=== PATIENT | male | born 1945 | race African-American/Black ===

== ENCOUNTER 2016-12-13 11:40 | Emergency (ER) | payer OTHER ==
[~2016-12-13] VITALS: Ht 175.3 cm; Wt 89.3 kg
[~2016-12-13 11:40] MED LIST: ATENOLOL100 MG PO; CIPRO500 MG PO; LAC PO; MAC100 PO; MOTRIN800 MG PO; PANTOPRAZOLE SO40 M1 PO; PHENAZOPYRIDINE PO; PROTONIX40 MG PO
[2016-12-13 12:08] LABS: BASOPHIL % 0.4 % (0-2); PLATELET COUNT 142 x10^3mcL (130-400)
[2016-12-13 12:12] LABS: RED CELL DISTRIBUTION WIDTH 16.9 % (11.5-14.5)
[2016-12-13 12:21] LABS: CALCIUM 8.8 mg/dL (8.5-10.1); CARBON DIOXIDE 23.8 mmol/L (21-32); CREATININE SERUM 1.7 mg/dL (0.7-1.3); POTASSIUM SERUM 4.1 mmol/L (3.5-5.1)
[2016-12-13 12:26] LABS: BILIRUBIN TOTAL 1.4 mg/dL (0.20-1.00)
[2016-12-13 12:32] LABS: FREE T4 1.39 ng/dL (0.76-1.46)
[2016-12-13 12:34] LABS: T3 TOTAL 1.25 ng/mL; T4(THYROXINE) 13.8 ug/dL (4.7-13.3)
[2016-12-13 12:37] LABS: TOTAL PROTEIN, SERUM 9.3 g/dL (6.4-8.2)
[2016-12-13 13:13] VITALS: BP 117/83
== END 2016-12-13 13:13 | disposition home or self-care (01) ==
LOC: ED 11:40
PROVIDERS: Specialist
DX: R55 Syncope and collapse (principal); R42 Dizziness and giddiness; N28.9 Disorder of kidney and ureter, unspecified; K21.9 Gastro-esophageal reflux disease without esophagitis; N40.0 Benign prostatic hyperplasia without lower urinary tract symptoms
CPT/HCPCS: 83880; 84439; J7030; Q0092

== ENCOUNTER 2017-03-07 19:41 | Emergency (ER) | payer OTHER ==
[~2017-03-07] VITALS: Ht 175.3 cm; Wt 88.9 kg
[2017-03-07 21:31] LABS: BASOPHIL % 0.3 % (0-2)
[2017-03-07 21:32] LABS: PLATELET COUNT 126 x10^3mcL (130-400); RED CELL DISTRIBUTION WIDTH 15.6 % (11.5-14.5)
[2017-03-07 21:38] LABS: CALCIUM 8.7 mg/dL (8.5-10.1); CARBON DIOXIDE 22.5 mmol/L (21-32); CHLORIDE SERUM 105 mmol/L (98-107); GFR1 > 60 mL/min; GLUCOSE SERUM 94 mg/dL (74-106); SODIUM SERUM 135 mmol/L (136-145)
[2017-03-07 21:43] LABS: ALKALINE PHOSPHATASE 212 U/L (46-116); ALT/SGPT 95 U/L (16-63); AST/SGOT 122 U/L (15-37); BILIRUBIN TOTAL 1.59 mg/dL (0.20-1.00); LIPASE 230 IU/L (73-393)
[2017-03-07 21:45] LABS: ALBUMIN 2.4 g/dL (3.4-5.0); TOTAL PROTEIN, SERUM 9.6 g/dL (6.4-8.2)
[2017-03-07 22:47] VITALS: BP 149/89
== END 2017-03-07 22:47 | disposition home or self-care (01) ==
LOC: ED 19:41
PROVIDERS: Emergency Medicine
DX: B34.9 Viral infection, unspecified (principal); E86.0 Dehydration; R19.7 Diarrhea, unspecified; J02.9 Acute pharyngitis, unspecified; R51 Headache; I10 Essential (primary) hypertension; Z79.891 Long term (current) use of opiate analgesic; Z96.649 Presence of unspecified artificial hip joint
CPT/HCPCS: J7030; Q0092